=== PATIENT | male | born 2000 | race African-American/Black ===

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

== ENCOUNTER 2020-04-27 18:46 | Emergency (ER) | payer MEDICAID ==
[~2020-04-27] VITALS: Ht 180.3 cm; Wt 72.6 kg
[2020-04-27 19:59] LABS: Basophils # (auto) 0.1 10 ^3/uL (0-0.2); Basophils % (auto) 1.6 % (0.0-2.0); Eosinophils # (auto) 0 10 ^3/uL (0-0.8); Eosinophils % (auto) 0.1 % (0.0-7.0); Hematocrit 47.3 % (41.0-53.0); Lymphocytes # (auto) 1.1 10 ^3/uL (0.4-5.4); Lymphocytes % (auto) 16.5 % (10.0-50.0); Mean Corpuscular Hgb Conc. 33.9 g/dL (32.0-36.0); Mean Corpuscular Volume 88.6 fL (80.0-100.0); Monocytes # (auto) 0.9 10 ^3/uL (0-1.3); Monocytes % (auto) 13.9 % (0.0-12.0); Neutrophils # (auto) 4.3 10 ^3/uL (1.6-8.6); Neutrophils % (auto) 67.9 % (37.0-80.0); Nucleated Red Blood Cells % 0.1 %; Platelet Count (auto) 229 10^3/uL (140-450); Red Blood Cells 5.35 10^6/uL (4.5-5.90); Red Cell Distribution Width 14.1 % (11.8-14.3); White Blood Cell 6.4 10^3/uL (4.4-10.8)
[2020-04-27 20:13] LABS: Albumin 4.4 g/dL (3.4-5.0); Amylase 150 U/L (25-115); Anion Gap 9 (5-15); Blood Alcohol < 3.0 mg/dL (0-5); Blood Urea Nitrogen 12 mg/dL (7-18); Calcium 9.8 mg/dL (8.5-10.1); Carbon Dioxide 25 mmol/L (21-32); Chloride 104 mmol/L (98-107); Glucose 92 mg/dL (74-106); Lipase 80 U/L (73-393); Magnesium 2.3 mg/dL (1.6-2.6); Potassium 3.8 mmol/L (3.5-5.1); Sodium 138 mmol/L (136-145)
[2020-04-27] MEDS ORDERED: SODIUM CHLORIDE 0.9% 1,000 ML IV ONE (20:15)
[2020-04-27] MEDS ORDERED: ONDANSETRON HCL 4 MG/2 ML VIAL IV ONE (20:15)
[2020-04-27 20:21] LABS: Alanine Aminotransferase 35 U/L (16-61); Alkaline Phosphatase 93 U/L (45-117); Aspartate Aminotransferase 28 U/L (15-37); BUN/Creatinine Ratio 9.9; Bilirubin, Total 0.6 mg/dL (0.2-1.0); GFR African American 97 mL/min; GFR Non-African American 80 mL/min; Total Protein 9.1 g/dL (6.4-8.2)
[2020-04-27] MEDS ORDERED: diphenhdrAMINE HCL 50 MG/1 ML VL IV ONE (21:15)
[2020-04-27] MEDS ORDERED: HALOPERIDOL LACTATE 5 MG/ML INJ VIAL IM ONE (21:30)
[2020-04-27 21:32] LABS: Urine Bacteria NONE SEEN /hpf (None Seen); Urine Blood Negative /uL (Negative); Urine Mucus FEW (None Seen); Urine Specific Gravity 1.032 (1.001-1.035); Urine WBC 10 /hpf (0 - 3)
[2020-04-27 21:44] LABS: Amphetamine Screen, Urine NEGATIVE (NEGATIVE); Barbiturate Scree,Urine NEGATIVE (NEGATIVE); Benzodiazephine Screen, Urine POSITIVE (NEGATIVE); Cannabinoid Screen, Urine POSITIVE (NEGATIVE); Cocaine Screen, Urine NEGATIVE (NEGATIVE); Opiate Scree,Urine NEGATIVE (NEGATIVE); Phencyclidine Screen, Urine NEGATIVE (NEGATIVE)
[2020-04-27] MEDS ORDERED: IOHEXOL 300 MG/ML 100ML BOTTLE IJ ONE (21:58)
[2020-04-28 01:14] VITALS: BP 121/65
== END 2020-04-28 01:24 | disposition home or self-care (01) ==
LOC: ER 18:46
DX: N39.0 Urinary tract infection, site not specified (principal); A63.8 Other specified predominantly sexually transmitted diseases; F12.10 Cannabis abuse, uncomplicated; N50.819 Testicular pain, unspecified
CPT/HCPCS: 36415; 74176; 74177; 80053; 80307; 80320; 81001; 82150; 83690; 83735; 84484; 85025; 87491; 87591; 96361; 96372; 96374; 96375; 99285; J1200; J1630; J2405; J7030; Q9967

== ENCOUNTER 2020-04-28 20:07 | Emergency (ER) | payer MEDICAID ==
[~2020-04-28] VITALS: Ht 180.3 cm; Wt 72.6 kg
[2020-04-28 22:00] VITALS: BP 117/63
== END 2020-04-28 22:22 | disposition home or self-care (01) ==
LOC: ER 20:08
DX: T78.49XA Other allergy, initial encounter (principal); T36.95XA Adverse effect of unspecified systemic antibiotic, initial encounter; F12.10 Cannabis abuse, uncomplicated; Y92.9 Unspecified place or not applicable
CPT/HCPCS: 70360

== ENCOUNTER 2020-04-28 22:52 | Emergency (ER) | payer MEDICAID ==
[~2020-04-28] VITALS: Ht 180.3 cm; Wt 68.0 kg
[2020-04-28 23:06] VITALS: BP 125/83
== END 2020-04-28 23:25 | disposition left against medical advice (07) ==
LOC: ER 22:52
DX: R06.02 Shortness of breath (principal); F12.10 Cannabis abuse, uncomplicated